=== PATIENT | male | born 1980 | race Caucasian/White ===

== ENCOUNTER 2016-12-17 00:27 | Emergency (ER) | payer BC ==
[~2016-12-17] VITALS: Ht 182.9 cm; Wt 117.9 kg
--- NOTE | 2016-12-17 02:07 | NUR ---
Patient discharged to home in stable conditon. Written and verbal after care instructions given. Patient verbalizes understanding of instructions. Abmulated from ER with stable gait. All belongings with patient. Patient will be driven home by his friend in a private vehicle.
[2016-12-17 02:08] VITALS: BP 127/74
== END 2016-12-17 02:08 | disposition home or self-care (01) ==
LOC: ER 00:30
DX: S00.01XA Abrasion of scalp, initial encounter (principal); K44.9 Diaphragmatic hernia without obstruction or gangrene; W22.8XXA Striking against or struck by other objects, initial encounter; Y93.89 Activity, other specified; Y92.69 Other specified industrial and construction area as the place of occurrence of the external cause; Y99.9 Unspecified external cause status
CPT/HCPCS: 70450; 72125

== ENCOUNTER 2020-04-21 14:10 | Emergency (ER) | payer BC ==
[~2020-04-21] VITALS: Ht 182.9 cm; Wt 120.2 kg
--- NOTE | 2020-04-21 14:15 | NUR ---
RECEVED PT 39yrs male pt came by [facility] c/o sob and COUGHING FOr 2 DAYS o2 sat flquteated from 94-97% on room air hob elevated examine by DR. INDY bowman by lab tach C XRAY DONE hhn tx given by RT CLOSLY OBSERVE PT
[2020-04-21] MEDS ORDERED: IPRATROPIUM BROMIDE 0.5 MG/2.5 ML NEBU NEB ONE (14:45)
[2020-04-21] MEDS ORDERED: ALBUTEROL SULFATE 2.5 MG/3 ML NEBU NEB ONE (14:45)
[2020-04-21] MEDS ORDERED: ALBUTEROL SULFATE 2.5 MG/3 ML NEBU ONE (15:03)
[2020-04-21] MEDS ORDERED: IPRATROPIUM BROMIDE 0.5 MG/2.5 ML NEBU ONE (15:03)
--- NOTE | 2020-04-21 15:30 | NUR ---
COVED SWAB SENT TO LAB
[2020-04-21] MEDS ORDERED: predniSONE 20 MG TABLET PO ONE (17:00)
[2020-04-21] MEDS ORDERED: predniSONE 20 MG TABLET ONE (17:26)
--- NOTE | 2020-04-21 17:49 | NUR ---
coved result prostive predncone 60mg po given plan to d/c home with rx
[2020-04-21 17:58] VITALS: BP 140/75
--- NOTE | 2020-04-26 12:38 | NUR ---
RT LATE ENTRY ON 04/21/20 @1509 PT WAS TAKEN OFF TX AT 1509 AND TOLERATED TX WELL, 15MIN TX DURATION, NO ADVERSE REACTION. PT VITALS STABLE HR 86 RATE 18 SPO2 99% LUNG SOUNDS DIMINISHED BILATERAL. PT POST TX WAS LEFT ON ROOM AIR. RN AWARE.
== END 2020-04-21 15:49 | disposition home or self-care (01) ==
LOC: ER 14:14
DX: U07.1 COVID-19 (principal); J06.9 Acute upper respiratory infection, unspecified
CPT/HCPCS: 71045; 87426; 94640; 99284; J7512; A4663; J3590